=== PATIENT | male | born 1995 | race Asian ===

== ENCOUNTER → 2017-08-05 17:55 | Emergency (ER) | payer OTHER ==
--- NOTE | 2017-08-05 18:25 | RAD ---
INDICATION: Left ankle injury. TECHNIQUE: 3 views of the left ankle were obtained. FINDINGS: Soft tissue swelling is noted along the anterolateral aspect of the ankle. No fracture is seen. Joint spaces appear maintained. IMPRESSION: SOFT TISSUE SWELLING, NO FRACTURE IS SEEN.
[2017-08-05 18:52] VITALS: BP 108/68
--- NOTE | 2017-08-05 19:08 | ED ---
Lower Extremity - HPI Summary HPI Summary: Patient is a 21-year-old male presenting to the ED with chief complaint of left ankle pain and swelling after twisting it at basketball this evening. Denies any ecchymosis, color temperature changes to the area. He has been on able to ambulate due to pain. He has not taken anything for relief. He arrives with an ice pack to the ankle. He takes no medications. Denies any lower extremity pain otherwise and denies any knee pain. Range of motion without limitations. - History of Current Complaint Chief Complaint: EDExtremityLower Stated Complaint: LT ANKLE INJURY Time Seen by Provider: 08/05/17 18:09 Hx Obtained From: Patient Mechanism Of Injury: Twisted Onset of Pain: Minutes Onset/Duration: Minutes Severity Initially: Mild Severity Currently: Mild Pain Intensity: 4 Pain Scale Used: 0-10 Numeric Timing: Constant Location: Is Discrete @ - Lateral ankle Associated Signs And Symptoms: Positive: Swelling Aggravating Factor(s): Standing, Ambulation Able to Bear Weight: No - Risk Factors Gout Risk Factors: Negative DVT Risk Factors: Negative Septic Arthritis Risk Factor: Negative - Allergies/Home Medications Allergies/Adverse Reactions: Allergies Allergy/AdvReac Type Severity Reaction Status Date / Time No Known Allergies Allergy Verified 08/05/17 18:08 PMH/Surg Hx/FS Hx/Imm Hx Previously Healthy: Yes - Immunization History Hx Pertussis Vaccination: No Immunizations Up to Date: Unable to Obtain/Confirm Infectious Disease History: No Infectious Disease History: Denies: Traveled Outside the [place] in Last 30 Days - Social History Occupation: Unemployed, Student Lives: With Family Alcohol Use: None Hx Substance Use: No Substance Use Type: Reports: None Hx Tobacco Use: No Smoking Status (MU): Never Smoked Tobacco Review of Systems Constitutional: Negative Negative: Fever, Chills, Fatigue, Skin Diaphoresis Negative: Photophobia, Blurred Vision, Diplopia Negative: Palpitations, Chest Pain Negative: Shortness Of Breath, Cough Genitourinary: Negative Positive: no symptoms reported, see HPI Positive: Arthralgia Positive: Other - swelling Negative: Headache, Weakness, Paresthesia All Other Systems Reviewed And Are Negative: Yes Physical Exam Triage Information Reviewed: Yes Vital Signs On Initial Exam: Initial Vitals Temp Pulse Resp BP Pulse Ox 98.6 F 88 16 138/73 100 08/05/17 18:08 08/05/17 18:08 04/20/18 18:08 08/05/17 18:08 08/05/17 18:08 Vital Signs Reviewed: Yes Appearance: Positive: Well-Appearing, Well-Nourished Skin: Positive: Warm, Skin Color Reflects Adequate Perfusion, Other - swelling to the lateral side of the L ankle Neck: Positive: Supple, No Lymphadenopathy Respiratory/Lung Sounds: Positive: Clear to Auscultation, Breath Sounds Present Cardiovascular: Positive: RRR, Pulses are Symmetrical in both Upper and Lower Extremities Musculoskeletal: Positive: Pain @ - left lateral ankle Neurological: Positive: Alert, Oriented to Person Place, Time, Speech Normal Psychiatric: Positive: Normal, Affect/Mood Appropriate AVPU Assessment: Alert Diagnostics - Vital Signs Vital Signs Temp Pulse Resp BP Pulse Ox 08/05/17 18:51 97.9 F 60 14 108/68 100 08/05/17 18:08 98.6 F 88 16 138/73 100 - Laboratory Lab Statement: Any lab studies that have been ordered have been reviewed, and results considered in the medical decision making process. Lower Extremity Course/Dx - Course Course Of Treatment: During the course of treatment, the patient is evaluated for left ankle pain. He sustained an injury while playing basketball one hour prior to arrival. The ankle is swollen without ecchymosis. Range of motion is limited. He is unable to plantar flex without pain. The majority of the pain is located to the lateral side over the ATFL. X-ray obtained which shows soft tissue swelling but no acute fracture is seen. He is encouraged ibuprofen, ice , elevation and given crutches and a gel splint. He will follow up with orthopedics for any worsening or changing symptoms. - Diagnoses Provider Diagnoses: Moderate left ankle sprain Discharge - Sign-Out/Discharge Documenting (check all that apply): Discharge - Discharge Plan Condition: Stable Disposition: HOME Patient Education Materials: Ankle Sprain (ED) Referrals: Russ Whalen MD [Medical Doctor] - [facility] - Faustino MONGE [Primary Care Provider] - Additional Instructions: Please follow-up with Dr. Garcia for any worsening or changing symptoms Use the crutches if you're unable to bear weight Ibuprofen 600 mg 3 times daily Ice the area as much as possible Elevate above the heart Use gel splint for comfort an Eloy wrap - Billing Disposition and Condition Condition: STABLE Disposition: HOME
== END | disposition home or self-care (01) ==
LOC: ED 17:55
DX: S93.402A Sprain of unspecified ligament of left ankle, initial encounter (principal); X50.1XXA Overexertion from prolonged static or awkward postures, initial encounter; Y93.67 Activity, basketball; Y92.310 Basketball court as the place of occurrence of the external cause
CPT/HCPCS: 99282